=== PATIENT | female | born 1990 | race Caucasian/White ===

== ENCOUNTER 2016-08-12 03:01 | Emergency (ER) | payer SELFPAY ==
[~2016-08-12] VITALS: Ht 162.6 cm; Wt 76.0 kg
[2016-08-12 03:54] VITALS: Ht 162.6 cm; Wt 76.0 kg
--- NOTE | 2016-08-12 04:03 | ERA ---
ER Documentation Chief Complaint Date/Time DATE: 08/12/16 TIME: 04:02 Chief Complaint Abdominal pain HPI The patient is a 25-year-old female, presenting to the ER because of chronic abdominal pain from gallstone for more than 2 years. She had fried shrimp last night and the right upper quadrant abdominal pain began about 2:30 AM. It is 9/ 10, she had similar symptoms from gallbladder attack previously, worse with eating. She denies fever, chills, neck pain, chest pain, dyspnea. The abdominal pain is localized at the right upper quadrant, no vomiting, no dysuria , no diarrhea, no dysuria. She does not smoke, drinks socially Past medical history: Cholelithiasis Past surgical history: None ROS All systems reviewed and are negative except as per history of present illness. Medications Home Meds Active Scripts Hydrocodone/Acetaminophen ([place] 5-325 Tablet) 1 Each Tablet, 1 TAB PO Q6H Y for PAIN, #7 TAB Prov:LYNDA TALLEY MD 08/12/16 Allergies Allergies: Coded Allergies: No Known Allergy (Unverified , 08/12/16) Physical Exam Vitals Vital Signs Date Time Temp Pulse Resp B/P Pulse Ox O2 Delivery O2 Flow Rate FiO2 08/12/16 03:54 97.8 71 20 116/84 100 Physical Exam Const: No acute distress. Head: Atraumatic. Eyes: Normal Conjunctiva. ENT: Normal External Ears, Nose and Mouth. Neck: Full range of motion. No meningismus. Resp: Clear to auscultation bilaterally. Cardio: Regular rate and rhythm, no murmurs. Abd: Soft, non distended, normal bowel sounds, moderate right upper quadrant tenderness, no right lower quadrant, rigidity, rebound, CVA tenderness Skin: No petechiae or rashes. Back: No midline or flank tenderness. Ext: No cyanosis, or edema. Neur: Awake and alert. No focal deficit Psych: Normal Mood and Affect. Result Diagram: 08/12/16 04108/12/16410 Results 24 hrs Laboratory Tests Test 08/12/16 04:11 08/12/16 04:15 Alanine Aminotransferase (ALT/SGPT) 36IU/L Albumin 4.7g/dl Albumin/Globulin Ratio 1.17 Alkaline Phosphatase 100IU/L Anion Gap 19 Aspartate Amino Transf (AST/SGOT) 36IU/L Basophils # 0.010^3/ul Basophils % 0.2% Blood Urea Nitrogen 12mg/dl Calcium Level 9.2mg/dl Carbon Dioxide Level 25mmol/L Chloride Level 102mmol/L Creatinine 1.10mg/dl Direct Bilirubin 0.00mg/dl Eosinophils # 0.110^3/ul Eosinophils % 1.0% Globulin 4.00g/dl Glucose Level 99mg/dl Hematocrit 40.9% Hemoglobin 14.2g/dl Indirect Bilirubin 0.0mg/dl Lipase 175U/L Lymphocytes # 1.510^3/ul Lymphocytes % 12.0% Mean Corpuscular Hemoglobin 31.1pg Mean Corpuscular Hemoglobin Concent 34.7g/dl Mean Corpuscular Volume 89.7fl Mean Platelet Volume 8.9fl Monocytes # 0.910^3/ul Monocytes % 7.0% Neutrophils # 9.810^3/ul Neutrophils % 79.8% Nucleated Red Blood Cells # 0.010^3/ul Nucleated Red Blood Cells % 0.0/100WBC Platelet Count 94796^3/UL Potassium Level 3.6mmol/L Red Blood Count 4.5610^6/ul Red Cell Distribution Width 12.4% Sodium Level 142mmol/L Total Bilirubin 0.0mg/dl Total Protein 8.7g/dl White Blood Count 12.310^3/ul Bedside Urine Blood Trace-intact Bedside Urine Glucose (UA) Negative Bedside Urine Ketones (LAB) Trace Bedside Urine Leukocyte Esterase (L Negative Bedside Urine Nitrite (LAB) Negative Bedside Urine Protein (LAB) Trace Bedside Urine pH (LAB) 6.0 Current Medications Medications (Trade) Dose Ordered Sig/Russ Route PRN Reason Start Time Stop Time Status Last Admin Dose Admin Sodium Chloride (NS) 250 ml @ 250 mls/hr Q1H ONCE IV 08/12/16 04:30 08/12/16 05:29 08/12/16 04:23 Morphine Sulfate (morphine) 4 mg ONCE STAT IV 08/12/16 04:18 08/12/16 04:20 DC 08/12/16 04:23 Ondansetron HCl (Zofran Inj) 4 mg ONCE STAT IV 08/12/16 04:18 08/12/16 04:20 DC 08/12/16 04:22 Ketorolac Tromethamine (Toradol) 30 mg ONCE STAT IV 08/12/16 04:50 08/12/16 04:51 DC 08/12/16 04:58 Procedures/MDM MEDICAL MAKING DECISION: The patient is a 24-year-old female, presenting with acute biliary colic. She was treated with 1 L normal saline, morphine 4 mg IV and Toradol 30 mg IV for pain, Zofran 4 mg IV for nausea with good response. The differential diagnoses considered include but are not limited to cholelithiasis, cholecystitis, cystitis, pancreatitis, hepatitis, gastritis, peptic ulcer disease, gastric ulcer, appendicitis, diverticulitis, cholangitis, choledocholithiasis, partial small bowel obstruction. Departure Diagnosis: Primary Impression: Biliary colic Condition: Good Comments She was discharged with [place] I discussed the findings with the patient. I advised the patient to follow-up with the primary physician in about 1-2 days for referral to general surgery for elective cholecystectomy, sooner if needed and return if any concern. LYNDA TALLEY MD Aug 12, 2016 04:03
[2016-08-12 04:15] LABS: URINE BLOOD (Dip) POC Trace-intact (NEGATIVE)
[2016-08-12] MEDS ORDERED: morphine 4 MG/ML VIAL IV STA (04:18)
[2016-08-12] MEDS ORDERED: ONDANSETRON 4 MG INJ IV STA (04:18)
[2016-08-12 04:25] LABS: BASOPHILS % 0.2 % (0.0-2.0); EOSINOPHILS # 0.1 10^3/ul (0.0-0.5); HEMATOCRIT 40.9 % (37.0-47.0); HEMOGLOBIN 14.2 g/dl (12.0-16.0); LYMPHOCYTES # 1.5 10^3/ul (0.8-2.9); MEAN CORPUSCULAR HEMOGLOBIN 31.1 pg (29.0-33.0); MEAN CORPUSCULAR HGB CONC 34.7 g/dl (32.0-37.0); MEAN CORPUSCULAR VOLUME 89.7 fl (82.0-101.0); MEAN PLATELET VOLUME 8.9 fl (7.4-10.4); MONOCYTE # 0.9 10^3/ul (0.3-0.9); NEUTROPHIL # 9.8 10^3/ul (1.6-7.5); NEUTROPHILS % 79.8 % (39.0-77.0); PLATELET COUNT 255 10^3/UL (140-440); RED BLOOD COUNT 4.56 10^6/ul (4.20-5.40); RED CELL DISTRIBUTION WIDTH 12.4 % (11.5-14.5); UNCORRECTED WBC 12.3 10^3/ul (4.8-10.8); WHITE BLOOD COUNT 12.3 10^3/ul (4.8-10.8)
[2016-08-12] MEDS ORDERED: HYDR-906 PO (04:25)
[2016-08-12] MEDS ORDERED: SOD CHLORIDE 0.9% 250 ML IV ONE (04:30)
[2016-08-12 04:31] LABS: ALBUMIN 4.7 g/dl (3.3-4.9)
[2016-08-12 04:32] LABS: POTASSIUM 3.6 mmol/L (3.5-5.1)
[2016-08-12 04:33] LABS: CREATININE 1.1 mg/dl (0.44-1.00)
[2016-08-12 04:34] LABS: ALBUMIN/GLOBULIN RATIO 1.17; CALCIUM 9.2 mg/dl (8.4-10.2); TOTAL PROTEIN 8.7 g/dl (6.1-8.1)
[2016-08-12 04:39] LABS: CONDITION 1
[2016-08-12] MEDS ORDERED: KETOROLAC 30 MG INJ IV STA (04:50)
== END 2016-08-12 05:50 | disposition home or self-care (01) ==
LOC: E/R 03:01
DX: K80.50 Calculus of bile duct without cholangitis or cholecystitis without obstruction (principal)
CPT/HCPCS: 36415; 80053; 81003; 83690; 85025; 96374; 96375; 99284; J1885; J2270; J2405; J7040

== ENCOUNTER 2016-09-23 09:22 | Emergency (ER) | payer SELFPAY ==
[~2016-09-23] VITALS: Ht 162.6 cm; Wt 74.5 kg
[~2016-09-23 09:22] MED LIST: HYDR-906 PO
[2016-09-23 10:04] VITALS: Ht 162.6 cm; Wt 74.5 kg
[2016-09-23] MEDS ORDERED: ONDANSETRON (ODT) 4 MG TAB ODT STA (12:42)
[2016-09-23] MEDS ORDERED: HYDROCODONE/APAP (10/325) TAB PO ONE (13:00)
--- NOTE | 2016-09-23 14:10 | RADRPT ---
PROCEDURE: Left knee series. CLINICAL INDICATION: Left knee pain TECHNIQUE: Three views of the left knee. COMPARISON: None available FINDINGS: There is normal mineralization and alignment of the left knee. No acute fracture or dislocation is seen. Joint spaces are well maintained. There is no evidence of osteophyte formation or erosion. No definite joint effusion is seen. The soft tissues are within normal limits. IMPRESSION: 1. Unremarkable left knee x-ray series. RPTAT: KK .Ulises Holt MD, Date Time Electronically viewed and signed by .Ulises Holt MD, on 09/23/2016 14:10 .B/
--- NOTE | 2016-09-23 14:31 | ERD ---
ER Documentation Chief Complaint Date/Time DATE: 09/23/16 TIME: 14:28 Chief Complaint left knee pain from stepping down stairs; heard/felt a "pop" HPI 26-year-old otherwise healthy female presents the emergency department following an injury to her left knee this morning at 7 AM. Patient states she was walking down the stairs to go to work and twisted her knee hearing a pop sound and feeling immediate pain. Patient states her pain right now is a 6 out of 10 constant throbbing pain worse when moving her knee or walking. Patient denies any numbness, tingling, major swelling, laceration or abrasion. Patient denies any prior injury to this knee. ROS All systems reviewed and are negative except as per history of present illness. Medications Home Meds Active Scripts Hydrocodone/Acetaminophen ([place] 5-325 Tablet) 1 Each Tablet, 1 EACH PO QHS for 10 Days, TAB Prov:HEATH BANDA PA-C 09/23/16 Naproxen* (Naprosyn*) 500 Mg Tablet, 500 MG PO BID Y for PAIN AND/OR INFLAMMATION, #30 TAB Prov:HEATH BANDA PA-C 09/23/16 Hydrocodone/Acetaminophen ([place] 5-325 Tablet) 1 Each Tablet, 1 TAB PO Q6H Y for PAIN, #7 TAB Prov:LYNDA TALLEY MD 08/12/16 Allergies Allergies: Coded Allergies: No Known Allergy (Unverified , 08/12/16) PMhx/Soc Hx Alcohol Use: Yes (socially) Hx Substance Use: No Hx Tobacco Use: No Physical Exam Vitals Vital Signs Date Time Temp Pulse Resp B/P Pulse Ox O2 Delivery O2 Flow Rate FiO2 09/23/16 10:04 98.0 90 18 100/56 98 Physical Exam Const: Well-developed, well-nourished, no acute distress Head: Atraumatic Eyes: Normal Conjunctiva ENT: Normal External Ears, Nose and Mouth. Neck: Full range of motion..~ No midline cervical spine tenderness Cardio: Regular rate and rhythm, no murmurs Abd: Soft, non tender, non distended. Normal bowel sounds Skin: No petechiae or rashes Back: No midline or flank tenderness Ext: Mild swelling without erythema localized to the left knee joint. Mild tenderness to palpation. Active range of motion limited due to pain. Full passive range of motion. Negative anterior posterior drawer test. Tenderness manipulation of medial collateral ligament. Pedal pulses equal and bilateral. Distal sensation intact bilaterally. Patient has full active and passive range of motion of ankle joint. No ecchymosis, swelling surrounding the ankle or foot. No cyanosis, or edema Neur: Awake and alert Psych: Normal Mood and Affect Results 24 hrs Current Medications Medications (Trade) Dose Ordered Sig/Russ Route PRN Reason Start Time Stop Time Status Last Admin Dose Admin Acetaminophen/ Hydrocodone Bitart ([place] ()) 1 tab ONCE ONCE PO 09/23/16 13:00 09/23/16 13:01 DC 09/23/16 12:54 Ondansetron HCl (Zofran Odt) 4 mg ONCE STAT ODT 09/23/16 12:42 09/23/16 12:44 DC 09/23/16 12:54 Procedures/MDM PROCEDURE: Left knee series. CLINICAL INDICATION: Left knee pain TECHNIQUE: Three views of the left knee. COMPARISON: None available FINDINGS: There is normal mineralization and alignment of the left knee. No acute fracture or dislocation is seen. Joint spaces are well maintained. There is no evidence of osteophyte formation or erosion. No definite joint effusion is seen. The soft tissues are within normal limits. IMPRESSION: 1. Unremarkable left knee x-ray series. RPTAT: KK .Ulises Holt MD, MD Date Time Electronically viewed and signed by .Ulises Holt MD, MD on 2016 14:10 .B/ CC: HEATH BANDA PA-C Otherwise healthy 26-year-old female presents to the emergency department after twisting her left knee and hearing a pop then experienced immediate pain. Patient received pain medication while in the emergency department and reports improvement of symptoms. Physical exam unremarkable aside from tenderness upon manipulation of medial collateral ligament and decreased active range of motion. Patient able to weight-bear and ambulate with slight discomfort. X- rays unremarkable for acute fracture. Patient afebrile denies any redness, fever or chills. At this time I have low suspicion for fracture, dislocation, septic joint, or left-sided ankle or hip injury. Patient placed in Jacek wrap and given crutches. I discussed with the patient the importance of following up with water pollution specialist within 1 week for proper management and possible MRI for her injury. Patient to continue NSAIDs for pain relief at home as well as rest, ice, and elevation. Patient expressed understanding of and agreement with plan. Based on patient's history of present illness and physical examination the decision was made to discharge. The patient was re-evaluated after ED treatment and stabilizing measures, and symptoms have improved. There is no evidence of life threatening injuries or illnesses at this time. On re-examination, patient resting in no distress, stable vital signs, reports feeling better and safe for discharge with outpatient follow up with PMD in 1-2 days. Patient given return precautions. HEATH BANDA PA-C Sep 23, 2016 14:31
[2016-09-23] MEDS ORDERED: NAPR-260 PO (14:36)
[2016-09-23] MEDS ORDERED: HYDR-906 PO (14:36)
== END 2016-09-23 15:13 | disposition home or self-care (01) ==
LOC: FTE 09:22
DX: S89.92XA Unspecified injury of left lower leg, initial encounter (principal); X50.1XXA Overexertion from prolonged static or awkward postures, initial encounter; Y92.9 Unspecified place or not applicable
CPT/HCPCS: 73562